=== PATIENT | male | born 1995 | race Caucasian/White ===

== ENCOUNTER 2024-01-10 22:58 | Emergency (ER) | payer BC, SELFPAY ==
[2024-01-10 23:06] VITALS: BP 162/99
[2024-01-10 23:18] VITALS: BMI 34.1
[2024-01-10 23:42] LABS: % Basophils 0.7 % (0-2); % Eosinophils 2.8 % (0-6); % Immature Granulocytes 0.3 % (0-0.5); % Lymphocytes 29.5 % (20.5-51.1); % Monocytes 9.2 % (1.7-9.3); % Neutrophils 57.5 % (42.2-75.2); Absolute Basophils 0.1 10^3/uL (0-0.2); Absolute Eosinophils 0.3 10^3/uL (0-0.7); Absolute Lymphocytes 2.6 10^3/uL (1.2-3.4); Absolute Monocytes 0.8 10^3/uL (0.1-0.6); Absolute Neutrophils 5.1 10^3/uL (1.4-6.5); Hematocrit 39.5 % (39.0-52.0); Hemoglobin 14.6 g/dL (13.0-18.0); Mean Corpuscular Hgb 31.7 pg (27.0-31.0); Mean Corpuscular Volume 85.7 fL (80.0-94.0); Mean Platelet Volume 9.2 fL (7.4-10.4); Nucleated Red Blood Cells % 0 % (-); Platelet Count 224 10^3/uL (130-400); Red Blood Cell Count 4.61 10^6/uL (4.70-6.10); Red Cell Dist. Width 12.2 % (11.5-14.5); White Blood Cell Count 8.8 10^3/uL (4.8-10.8)
[2024-01-10 23:52] VITALS: BP 134/94
[2024-01-10 23:56] LABS: ALT (SGPT) 35 U/L (0-50); AST (SGOT) 41 U/L (17-59); Albumin 4.7 g/dl (3.5-5.0); Alkaline Phosphatase 64 U/L (38-126); Blood Urea Nitrogen 13 mg/dl (9-20); Carbon Dioxide 19 mmol/L (22-30); Chloride 105 mmol/L (98-107); Estimated Creatinine Clearance > 125 ml/min; Glucose 90 mg/dl (70-99); Potassium 3.8 mmol/L (3.5-5.1); Sodium 142 mmol/L (135-145); Total Bilirubin 0.9 mg/dl (0.2-1.3); Total Protein 6.9 g/dl (6.3-8.2); eGFR > 60.00
[2024-01-11] VITALS: BP 156/87
[2024-01-11] MEDS: TORADOL 15 MG IV (00:09)
[2024-01-11 00:15] LABS: Troponin I < 0.012 ng/ml
--- NOTE | 2024-01-11 00:24 | ED.GENMED ---
History of Present Illness
General
Chief Complaint: Chest Problem
Time Seen by Provider: 01/10/24 23:31
History of Present Illness
History of Present Illness:
Patient is a 28-year-old male with no past medical history presenting to the emergency department chest pain. Patient states that yesterday he played basketball. This morning he woke up went to work. He did do some heavy lifting this morning.
Around 1 PM developed left-sided chest pain. Has been constant. He states that it is discomfort. He denies any shortness of breath nausea vomiting diaphoresis numbness tingling or weakness. He states that the pain did not go away and he started
to think about it. He then started getting anxious and was panicking. He then googled his symptoms and came here for further evaluation. No family history of cardiac history or sudden cardiac . He does see a primary care doctor regularly.
He does not take any medicines prior to arrival.
Past History
Past History
ED Past Medical History: None
ED Past Surgical History: None
Social History
Tobacco: Non-smoker
Alcohol: None
Drug: None
Phy Exam
Physical Exam
Physical Exam:
GENERAL: in no acute distress
HEENT: normocephalic, extraocular movements intact, moist oral mucosa
NECK: normal inspection
RESPIRATORY: no respiratory distress, clear to auscultation bilaterally
CARDIOVASCULAR: regular rate and rhythm, left-sided chest wall tenderness in the fifth intercostal space, 2+ radial pulses bilaterally
ABDOMEN/: soft, non-distended, non-tender to palpation, no rebound or guarding
EXTREMITIES: non-tender, no edema/swelling
NEUROLOGIC: awake and alert, moves all extremities
SKIN: warm
Course
Orders/Labs/Results
Orders:
Orders
01/10/24 22:59
ECG [Electrocardiogram (*1)] Urgent
Reason for Study: Chest Pain
01/10/24 23:00
EKG- Treatment ONCE
01/10/24 23:33
Complete Blood Count/With Diff Urgent
Comprehensive Metabolic Panel Urgent
Troponin I Urgent
01/11/24 00:04
Ketorolac [Toradol] 15 mg IV NOW STA
CR Chest - 2 Views Urgent
Comment:
Reason For Exam: chest pain
Abnormal Lab Results
01/10/24
23:33
RBC 4.61 L 10^6/uL
(4.70-6.10)
MCH 31.7 H pg
(27.0-31.0)
Absolute Monos (auto) 0.8 H 10^3/uL
(0.1-0.6)
Carbon Dioxide 19 L mmol/L
(22-30)
01/10/24 23:33
01/10/24 23:33
Vital Signs
Initial and Last Documented VS:
Initial Vital Signs
Temp Pulse Resp BP Pulse Ox
98.5 F 73 14 162/99 100
01/10/24 23:06 01/10/24 23:06 01/10/24 23:06 01/10/24 23:06 01/10/24 23:06
Last Documented Vital Signs
Temp Pulse Resp BP Pulse Ox
98.5 F 87 19 156/87 100
01/10/24 23:06 01/11/24 00:00 01/11/24 00:00 01/11/24 00:00 01/11/24 00:00
MDM/Problems Addressed
Differential Diagnosis Includes:
Patient is a 28-year-old male presenting to the emergency department chest pain that has been ongoing for the past 12 hours. Vitals are notable for hypertension and exam does show tenderness in the intercostal space. Likely MSK pain. Doubt ACS or
pericarditis or myocarditis. History and exam not consistent with dissection or PE. EKG per my interpretation with a right bundle branch block. No prior comparison. Blood work obtained prior to elevation is unremarkable. Troponin pending. Will
treat with Toradol. Will make sure patient follows up with his PCP.
*Critical Care Note
Total Time (30-74mins, 75-104mins- exclusive of procedures): Not Applicable
Update Note
Update Note:
Pain resolved after Toradol. Chest x-ray per my interpretation with no focal opacity. Will discharge at this time. Patient is aware to follow-up with PCP.
ED Attending Note
-
Portions of this chart may have been created with voice recognition software.� Occasional wrong word or��sound alike� substitutions may have occurred due to the inherent limitations of voice recognition software.
Discharge Plan
Departure
Patient Disposition: Home (Routine Discharge)
Date of Disposition: 01/11/24
Time of Disposition: 01:09
Patient with high blood pressure during this ER visit?: Yes
Discharge Problem:
Chest pain
Instructions: Chest Pain (DC)
Prescriptions:
No Action
loratadine 10 MG tablet
10 mg PO DAILY
hydrocodone-acetaminophen 1 TABLET tablet
1 - 2 tab PO Q4HPRN PRN (Reason: moderate to severe pain) Qty: 10 0RF
Referrals:
Fuentes Puri MD [Family Provider] -
Activity Restrictions/Additional Instructions:
You were evaluated in the Emergency Department today for chest pain. Your evaluation has shown no signs of medical conditions requiring emergent intervention at this time, however we recommend that you follow up with your primary care physician or
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 Your EKG did show a right bundle branch block.
Please schedule an appointment for follow up with your primary care physician as soon as possible.
Return to the Emergency Department if you experience worsening or uncontrolled chest pain, shortness of breath, light headedness, feeling faint, nausea, vomiting, or any other concerning symptoms.
Thank you for choosing us for your care.
Interventions
Interventions:
*Risk Screen - Suicide Last Done: 01/10/24 23:06
*General Assessment Last Done: 01/10/24 23:06
*Neglect/Abuse Screening Last Done: 01/10/24 23:18
*ED COVID-19 Vaccine History Last Done: 01/10/24 23:18
ED- Cardiac Assessment Last Done: 01/10/24 23:18
ED- Pulmonary Assessment Last Done: 01/10/24 23:18
Discharge Date and Time
Print Language: POLISH
== END 2024-01-11 01:23 | disposition home or self-care (01) ==
LOC: EMR 22:58
PROVIDERS: Emergency Medicine; EMERGENCY PHYSICIAN Student in an Organized Health Care Education/Training Program; FAMILY PHYSICIAN Internal Medicine
DX: R07.89 Other chest pain (principal); I45.10 Unspecified right bundle-branch block; R03.0 Elevated blood-pressure reading, without diagnosis of hypertension
CPT/HCPCS: 99284; 96374; 71046; 80053; 84484; 85025; 93005